=== PATIENT | female | born 1990 | race African-American/Black ===

== ENCOUNTER 2018-11-15 05:03 | Inpatient (IN) ==
[2018-11-15] MEDS ORDERED: ONDANSETRON 4 MG/2 ML VIAL IV PRN (05:16)
[2018-11-15] MEDS ORDERED: ACETAMINOPHEN 325 MG TABLET PO PRN ×2 (05:16→17:13)
[2018-11-15] MEDS ORDERED: BUTORPHANOL 2 MG/ML VIAL IV PRN (05:16)
[2018-11-15] MEDS ORDERED: MEPERIDINE 50 MG/1 ML VIAL IV PRN (05:16)
[2018-11-15] MEDS ORDERED: OXYTOCIN/LR 20 UNIT/1,000 ML BAG IV SCH (05:30)
[2018-11-15 05:40] LABS: Basophils % 0.6 % (0.0-0.8); Eosinophils # 0.2 10*3/uL (0.0-0.87); Eosinophils % 2.6 % (0.00-10.9); Hematocrit 31.9 VOL% (35.7-47.0); Hemoglobin 9.9 GM/DL (12.0-16.0); Immature Granulocytes % 0.6 %; Immature Granulocytes Absolute 0.04 #; Lymphocytes # 1.4 10*3/uL (1.4-4.0); Lymphocytes % 21.7 % (21.3-54.2); Mean Corpuscular Hemoglobin 25 PG (27-34); Mean Corpuscular Volume 79.2 FL (87-102); Mean Platelet Volume 10.6 FL (9.6-12.0); Monocytes # 0.7 10*3/uL (0.11-0.8); Monocytes % 10.4 % (1.7-12.7); Neutrophils # 4.3 10*3/uL (1.4-7.4); Neutrophils % 64.1 % (38.7-73.9); Platelet Count 330 T/CUMM (130-400); Red Blood Count 4.03 MC/CUMM (3.8-5.5); Red Cell Distribution Width 14.8 % (9.3-17.3); White Blood Count 6.6 T/CUMM (4-12)
[2018-11-15] MEDS: LACTATED RINGERS 1,000 ML IV SCH ×2 (05:49→10:09)
[2018-11-15] MEDS ORDERED: diphenhydrAMINE 50 MG/1 ML VIAL IV PRN ×2 (08:14)
[2018-11-15] MEDS ORDERED: CITRIC ACID/SODIUM CITRATE 30 ML UDCUP PO ONE (08:14)
[2018-11-15] MEDS ORDERED: PROMETHAZINE 25 MG/1 ML VIAL IM ONE (08:14)
[2018-11-15] MEDS ORDERED: hydrOXYzine HCL 25 MG/1 ML VIAL IM PRN (08:14)
[2018-11-15] MEDS ORDERED: FAMOTIDINE 20 MG/2 ML VIAL IV ONE (08:14)
[2018-11-15] MEDS ORDERED: LACTATED RINGERS 1,000 ML IV ONE (08:14)
[2018-11-15] MEDS ORDERED: ePHEDrine 50 MG/ML AMP IV PRN (08:14)
[2018-11-15] MEDS ORDERED: NALOXONE 0.4 MG/ML VIAL IV PRN (08:14)
[2018-11-15] MEDS ORDERED: fentaNYL 2 MCG/ROPIV 0.2% EPID 100 ML EPIDURAL SCH (08:30)
[2018-11-15 10:51] LABS: Apearance,Urine CLEAR (Clear); Bilirubin,Urine Negative (Negative); Blood, Urine Negative (Negative); Glucose,Urine (UA) Negative (Negative); Ketones,Urine Negative (Negative); Nitrite,Urine Negative (Negative); Protein,Urine Negative; Urine Color Yellow (Yellow); Urine Specific Gravity 1.004 (1.001-1.035); Urine Urobilinogen < 2.0 EU/DL (0.2-1.0)
[2018-11-15] MEDS ORDERED: LIDOCAINE 1% 50 ML VIAL ONE (13:09)
[2018-11-15] MEDS ORDERED: miSOPROStol 200 MCG TABLET ONE (13:09)
[2018-11-15] MEDS ORDERED: METHYLERGONOVINE 0.2 MG/1 ML AMP ONE (13:10)
[2018-11-15 15:06] LABS: Cord Venous Blood HCO3 18.6 MMOL/L; Cord Venous Blood PCO2 40.9 MMHG; Cord Venous Blood PO2 29.6
[2018-11-15] MEDS ORDERED: BISACODYL 10 MG SUPP RECTAL PRN (17:13)
[2018-11-15] MEDS ORDERED: MAGNESIUM HYDROXIDE SUSP 30 ML UDCUP PO PRN (17:13)
[2018-11-15] MEDS ORDERED: LACTATED RINGERS 1,000 ML IV SCH (17:30)
[2018-11-15] MEDS ORDERED: OXYTOCIN/LR 20 UNIT/1,000 ML BAG IV ONE (18:18)
[2018-11-15] MEDS: IBUPROFEN 800 MG TABLET PO PRN (19:08)
[2018-11-15] MEDS: DOCUSATE SODIUM 100 MG CAPSULE PO SCH (22:05)
[2018-11-16 05:37] LABS: Basophils # 0.1 10*3/uL (0.0-0.2); Basophils % 0.5 % (0.0-0.8); Eosinophils # 0.3 10*3/uL (0.0-0.87); Eosinophils % 3.1 % (0.00-10.9); Hematocrit 28.8 VOL% (35.7-47.0); Immature Granulocytes % 0.5 %; Immature Granulocytes Absolute 0.05 #; Lymphocytes % 18.5 % (21.3-54.2); Mean Corpuscular HGB Conc 31.3 GM/DL (32-36); Mean Corpuscular Hemoglobin 25 PG (27-34); Mean Corpuscular Volume 78.5 FL (87-102); Mean Platelet Volume 10.6 FL (9.6-12.0); Monocytes # 1.1 10*3/uL (0.11-0.8); Monocytes % 10.7 % (1.7-12.7); Neutrophils # 7.1 10*3/uL (1.4-7.4); Neutrophils % 66.7 % (38.7-73.9); Platelet Count 306 T/CUMM (130-400); Red Blood Count 3.67 MC/CUMM (3.8-5.5); Red Cell Distribution Width 14.9 % (9.3-17.3); White Blood Count 10.7 T/CUMM (4-12)
[2018-11-16] MEDS: IBUPROFEN 800 MG TABLET PO PRN (07:35)
[2018-11-16] MEDS: MULTIVITAMIN (PRENATAL) TABLET PO SCH (09:13)
[2018-11-16] MEDS: DOCUSATE SODIUM 100 MG CAPSULE PO SCH ×2 (09:13→22:05)
[2018-11-16] MEDS: LACTATED RINGERS 1,000 ML IV SCH ×2 (10:50)
[2018-11-17] MEDS: IBUPROFEN 800 MG TABLET PO PRN (03:56)
[2018-11-17] MEDS: DOCUSATE SODIUM 100 MG CAPSULE PO SCH (08:43)
[2018-11-17] MEDS: MULTIVITAMIN (PRENATAL) TABLET PO SCH (08:43)
[2018-11-17 11:58] VITALS: BP 123/73
== END 2018-11-17 13:05 | disposition home or self-care (01) | DRG 560 ==
LOC: N.LDOUT 05:03 → N.LD 05:08 → N.OB 17:00
PROVIDERS: ADMIT Obstetrics & Gynecology; ATTEND Obstetrics & Gynecology